=== PATIENT | male | born 1955 | race African-American/Black ===

== ENCOUNTER 2017-02-03 09:49 | Emergency (ER) | payer SELFPAY ==
[~2017-02-03] VITALS: Ht 182.9 cm; Wt 110.0 kg
[~2017-02-03 09:49] MED LIST: PERC5TAB12 PO
[2017-02-03 09:52] VITALS: BP 172/124; PULSE 102; RESP 20; TEMP 98.9; O2SAT 97
[2017-02-03] MEDS ORDERED: methylPREDNISolone SOD SUCC 125 MG/2 ML VIAL IVP ONE (10:15)
[2017-02-03] MEDS ORDERED: SODIUM CHLOR 0.9% 1000 ML INJ 1,000 ML IV ONE (10:15)
[2017-02-03] MEDS ORDERED: SODIUM CHLORIDE 0.9% FLUSH 10 ML FLUSH IVF PRN (10:15)
[2017-02-03 10:20] VITALS: BP 183/141; PULSE 96; RESP 16; O2SAT 98
--- NOTE | 2017-02-03 10:24 | PD ---
HPI Chief Complaint: Respiratory Symptoms Time Seen by Provider: 10:02 Travel History International Travel<30 days: No Contact w/Intl Traveler<30days: No Traveled to known affect area: No History of Present Illness HPI Patient is a 61-year-old male who presents to emergency room with complaints of cough and congestion and wheezing and shortness of breath for the past 2 weeks. Patient reports that for the past 2 weeks, he has had an increased runny nose , reports that he has had a nonproductive, dry cough. Patient reports that he notices worsening cough at nighttime. Patient reports that this cough wakes him up from sleep. Patient reports that he would wake up from sleep with coughing fits and feel short of breath. Reports that symptoms are improved when he lies up from bed. Patient reports that he is a smoker, reports that he smokes less than one pack per day. Patient denies any history of hypertension, hyperlipidemia, CHF, coronary disease. Patient reports that he has not seen a physician in about 5 years. Patient denies any recent travels or trips. Patient denies any fevers or chills. Patient also reports that he would like his left-sided kidneys evaluated as he has noticed that sometimes his urine would be dark. Denies any hematuria. Reports overall, he does not drink enough fluids PFSH Past Medical History Diminished Hearing: No Social History Alcohol Use: Yes (occ/weekends) Tobacco Use: Yes Substance Use: No Allergies-Medications (Allergen,Severity, Reaction): Coded Allergies: No Known Allergies (Unverified , 10/19/15) Reported Meds & Prescriptions Reported Meds & Active Scripts Active Norvasc (Amlodipine Besylate) 5 Mg Tab 5 Mg PO DAILY Prednisone 20 Mg Tab 20 Mg PO BID 5 Days Proair Hfa 8.5 GM Inh (Albuterol Sulfate) 90 Mcg/Act Aer 2 Puff INH Q4-6H PRN 108 mcg/actuation Azithromycin 500 Mg Tab 500 Mg PO DAILY Percocet 5-325 mg (Oxycodone/Acetaminophen) Oxycodone 5/325 Acetaminophen Tab 1 Tab PO Q6H PRN Review of Systems General / Constitutional: No: Fever Eyes: No: Visual changes HENT: No: Headaches Cardiovascular: No: Chest Pain or Discomfort, Palpitations Respiratory: Positive: Cough, Shortness of Breath, Wheezing Gastrointestinal: No: Nausea, Vomiting, Abdominal Pain Genitourinary: No: Dysuria Musculoskeletal: No: Pain Skin: No Rash Neurologic: No: Weakness Psychiatric: No: Depression Endocrine: No: Polydipsia Hematologic/Lymphatic: No: Easy Bruising Physical Exam Narrative GENERAL: No acute distress, nontoxic SKIN: Focused skin assessment warm/dry. HEAD: Atraumatic. Normocephalic. EYES: Pupils equal and round. No scleral icterus. No injection or drainage. ENT: No nasal bleeding or discharge. Mucous membranes pink and moist. NECK: Trachea midline. No JVD. CARDIOVASCULAR: Regular rate and rhythm. No murmur appreciated. RESPIRATORY: No accessory muscle use. Breath sounds equal bilaterally. Patient with scattered rhonchi on lung exam, mild wheezing GASTROINTESTINAL: Abdomen soft, non-tender, nondistended. Hepatic and splenic margins not palpable. Patient with left sided flank pain. MUSCULOSKELETAL: No obvious deformities. No clubbing. No cyanosis. No edema. NEUROLOGICAL: Awake and alert. No obvious cranial nerve deficits. Motor grossly within normal limits. Normal speech. PSYCHIATRIC: Appropriate mood and affect; insight and judgment normal. Data Data Last Documented VS Vital Signs Date Time Temp Pulse Resp B/P Pulse Ox O2 Delivery O2 Flow Rate FiO2 02/03/17 12:51 98 14 150/92 98 02/03/17 10:54 Room Air 02/03/17 09:52 98.9 Orders Complete Blood Count With Diff (02/03/17 10:10) Comprehensive Metabolic Panel (02/03/17 10:10) B-Type Natriuretic Peptide (02/03/17 10:10) D-Dimer (02/03/17 10:10) Act Partial Throm Time (Ptt) (02/03/17 10:10) Prothrombin Time / Inr (Pt) (02/03/17 10:10) Magnesium (Mg) (02/03/17 10:10) Iv Access Insert/Monitor (02/03/17 10:10) Ecg Monitoring (02/03/17 10:10) Oximetry (02/03/17 10:10) Chest, Single Ap (02/03/17 10:10) Sodium Chloride 0.9% Flush (Ns Flush) (02/03/17 10:15) Methylprednisolone So Succ Inj (Solumedr (02/03/17 10:15) Albuterol-Ipratropium Neb (Duoneb Neb) (02/03/17 10:15) Influenzae A/B Antigen (02/03/17 10:10) Sodium Chlor 0.9% 1000 Ml Inj (Ns 1000 M (02/03/17 10:15) Electrocardiogram (02/03/17 ) Ct Pulmonary Angiogram (02/03/17 10:56) Amlodipine (Norvasc) (02/03/17 11:15) Iohexol 350 Inj (Omnipaque 350 Inj) (02/03/17 11:51) Azithromycin (Zithromax) (02/03/17 12:45) Azithromycin (Zithromax) (02/03/17 13:15) Labs Laboratory Tests Test 02/03/17 10:15 White Blood Count 8.0 TH/MM3 Red Blood Count 4.86 MIL/MM3 Hemoglobin 17.6 GM/DL Hematocrit 50.5 % Mean Corpuscular Volume 103.9 FL Mean Corpuscular Hemoglobin 36.2 PG Mean Corpuscular Hemoglobin 34.8 % Concent Red Cell Distribution Width 14.9 % Platelet Count 204 TH/MM3 Mean Platelet Volume 9.3 FL Neutrophils (%) (Auto) 52.7 % Lymphocytes (%) (Auto) 21.4 % Monocytes (%) (Auto) 16.2 % Eosinophils (%) (Auto) 8.4 % Basophils (%) (Auto) 1.3 % Neutrophils # (Auto) 4.2 TH/MM3 Lymphocytes # (Auto) 1.7 TH/MM3 Monocytes # (Auto) 1.3 TH/MM3 Eosinophils # (Auto) 0.7 TH/MM3 Basophils # (Auto) 0.1 TH/MM3 CBC Comment DIFF FINAL Differential Comment Prothrombin Time 12.0 SEC Prothromb Time International 1.1 RATIO Ratio Activated Partial 32.2 SEC Thromboplast Time D-Dimer Quantitative (PE/DVT) 0.89 MG/L FEU Sodium Level 139 MEQ/L Potassium Level 4.6 MEQ/L Chloride Level 104 MEQ/L Carbon Dioxide Level 28.2 MEQ/L Anion Gap 7 MEQ/L Blood Urea Nitrogen 7 MG/DL Creatinine 0.95 MG/DL Estimat Glomerular Filtration 98 ML/MIN Rate Random Glucose 97 MG/DL Calcium Level 9.4 MG/DL Magnesium Level 1.8 MG/DL Total Bilirubin 1.1 MG/DL Aspartate Amino Transf 80 U/L (AST/SGOT) Alanine Aminotransferase 50 U/L (ALT/SGPT) Alkaline Phosphatase 292 U/L B-Type Natriuretic Peptide 50 PG/ML Total Protein 8.1 GM/DL Albumin 3.1 GM/DL MDM Medical Decision Making Medical Screen Exam Complete: Yes Emergency Medical Condition: Yes Interpretation(s) Vital Signs Date Time Temp Pulse Resp B/P Pulse Ox O2 Delivery O2 Flow Rate FiO2 02/03/17 09:52 98.9 102 20 172/124 97 Room Air Differential Diagnosis Acid reflux, COPD exacerbation, CHF exacerbation, PE, pneumonia, influenza, viral syndrome, sinusitis Narrative Course Patient is a 61-year-old male who presents to emergency room with multiple complaints. Patient reports that for the past 2 weeks, he has been feeling short of breath, reports a nonproductive cough with increased wheezing and shortness of breath. She reports that his symptoms are worse at nighttime, patient reports that he is a smoker,, reports that he smokes less than one pack per day. Patient also reports that he does not see a physician and therefore has no medical problems. Overall, patient is nontoxic on evaluation, patient is laughing and smiling on exam. Patient is hypertensive with a blood pressure of 172/124, he is tachycardic with heart rate of 102. Patient does have wheezing on exam, plan to give steroids as well as neb treatments. X-ray of the chest ordered to evaluate for possible pneumonia. Labs as well as EKG ordered. Will continue to monitor patient. Plan does have htn, cardiomegaly - discussed with patient need for him to follow -up with a primary care doctor as he will need a full workup as outpt. Patient reports that he does not have insurance, reviewed case with ED financial services internship - will speak to patient about outpatient community clinics CBC & BMP Diagram 02/03/17 10:15 Laboratory Tests Test 02/03/17 10:15 White Blood Count 8.0 TH/MM3 (4.0-11.0) Red Blood Count 4.86 MIL/MM3 (4.50-5.90) Hemoglobin 17.6 GM/DL (13.0-17.0) Hematocrit 50.5 % (39.0-51.0) Mean Corpuscular Volume 103.9 FL (80.0-100.0) Mean Corpuscular Hemoglobin 36.2 PG (27.0-34.0) Mean Corpuscular Hemoglobin 34.8 % Concent (32.0-36.0) Red Cell Distribution Width 14.9 % (11.6-17.2) Platelet Count 204 TH/MM3 (150-450) Mean Platelet Volume 9.3 FL (7.0-11.0) Neutrophils (%) (Auto) 52.7 % (16.0-70.0) Lymphocytes (%) (Auto) 21.4 % (9.0-44.0) Monocytes (%) (Auto) 16.2 % (0.0-8.0) Eosinophils (%) (Auto) 8.4 % (0.0-4.0) Basophils (%) (Auto) 1.3 % (0.0-2.0) Neutrophils # (Auto) 4.2 TH/MM3 (1.8-7.7) Lymphocytes # (Auto) 1.7 TH/MM3 (1.0-4.8) Monocytes # (Auto) 1.3 TH/MM3 (0-0.9) Eosinophils # (Auto) 0.7 TH/MM3 (0-0.4) Basophils # (Auto) 0.1 TH/MM3 (0-0.2) CBC Comment DIFF FINAL Differential Comment Prothrombin Time 12.0 SEC (9.8-11.6) Prothromb Time International 1.1 RATIO Ratio Activated Partial 32.2 SEC Thromboplast Time (24.3-30.1) D-Dimer Quantitative (PE/DVT) 0.89 MG/L FEU (0.00-0.50) Sodium Level 139 MEQ/L (136-145) Potassium Level 4.6 MEQ/L (3.5-5.1) Chloride Level 104 MEQ/L (98-107) Carbon Dioxide Level 28.2 MEQ/L (21.0-32.0) Anion Gap 7 MEQ/L (5-15) Blood Urea Nitrogen 7 MG/DL (7-18) Creatinine 0.95 MG/DL (0.60-1.30) Estimat Glomerular Filtration 98 ML/MIN (>89) Rate Random Glucose 97 MG/DL (74-106) Calcium Level 9.4 MG/DL (8.5-10.1) Magnesium Level 1.8 MG/DL (1.5-2.5) Total Bilirubin 1.1 MG/DL (0.2-1.0) Aspartate Amino Transf 80 U/L (15-37) (AST/SGOT) Alanine Aminotransferase 50 U/L (12-78) (ALT/SGPT) Alkaline Phosphatase 292 U/L (45-117) B-Type Natriuretic Peptide 50 PG/ML (0-100) Total Protein 8.1 GM/DL (6.4-8.2) Albumin 3.1 GM/DL (3.4-5.0) Last Impressions Chest X-Ray 02/03/17 1010 Signed Impressions: Service Date/Time: Friday, February 03, 2017 10:30 - CONCLUSION: Cardiomegaly without radiographic evidence of congestive failure. Miguel Goldberg MD Microbiology Date/Time Procedure Status Source Growth 02/03/17 10:55 Influenza Types A,B Antigen ([facility]) - Final Complete Nasal Aspirate Positive For Flu A Antigen All labs and all studies reviewed patient in detail including all findings. Patient was given a copy of his CT study as he will need to follow up on all incidental findings. Discussed importance of follow-up with a primary care doctor. Patient does have htn while in the ER, I do think that this has been a longstanding issue for him which has not been diagnosed as he has not been seen by a physician. Will start patient on Norvasc 5mg. discussed need to return to the emergency room in 2- 3 days for blood pressure recheck if he is unable to see a primary care doctor. Patient does have influenza type A, will start Tamiflu as patient has been symptomatic for the past 2 weeks. Given his cough and congestion and shortness of breath or wheezing, will treat patient for acute bronchitis. Diagnosis Primary Impression: Acute bronchitis Qualified Code: J20.9 - Acute bronchitis, unspecified organism Additional Impressions: Influenza A Cardiomegaly Hypertension Qualified Code: I10 - Essential hypertension Patient Instructions: General Instructions Additional Instructions: Please follow-up with your primary care doctor as soon as possible If you cannot follow up with a primary care doctor and 2-3 days, return to the emergency room for a blood pressure recheck, you have been started on blood pressure medications today Please drink plenty of fluids as you do have influenza Return to the emergency room if symptoms worsen or progress Med/Other Pt SpecificInfo: Prescription(s) given Scripts Amlodipine (Norvasc)5 Mg Tab5 Mg PO DAILY #30 TAB Ref 0 Prov:Lawanda Cabezas DO 02/03/17 Prednisone 20 Mg Tab20 Mg PO BID 5 Days Ref 0 Prov:Lawanda Cabezas DO 02/03/17 Albuterol 8.5 GM Inh (Proair Hfa 8.5 GM Inh)90 Mcg/Act Aer2 Puff INH Q4-6H PRN ( SHORTNESS OF BREATH) #1 INHALER Ref 0 108 mcg/actuation Prov:Lawanda Cabezas DO 02/03/17 Azithromycin 500 Mg Lgm221 Mg PO DAILY #5 TAB Ref 0 Prov:Lawanda Cabezas DO 02/03/17 Disposition: 01 DISCHARGE HOME Condition: Fair Lawanda Cabezas DO Feb 03, 2017 10:24
[2017-02-03] MEDS: RESP: ALBUTEROL 2.5 MG/IPRATROPIUM 0.5 MG NEB (SCH) INH (10:29)
[2017-02-03 10:32] LABS: AUTOMATED NEUTROPHIL # 4.2 TH/MM3 (1.8-7.7); BASOPHIL # 0.1 TH/MM3 (0-0.2); BASOPHIL % 1.3 % (0.0-2.0); EOSINOPHIL # 0.7 TH/MM3 (0-0.4); EOSINOPHIL % 8.4 % (0.0-4.0); HEMATOCRIT 50.5 % (39.0-51.0); HEMO FLAGS DIFF FINAL; LYMPH % 21.4 % (9.0-44.0); LYMPHOCYTE # 1.7 TH/MM3 (1.0-4.8); MEAN CELL VOLUME 103.9 FL (80.0-100.0); MEAN CORPUSCULAR HEMOGLOBIN 36.2 PG (27.0-34.0); MEAN CORPUSCULAR HGB CONC 34.8 % (32.0-36.0); MONO % 16.2 % (0.0-8.0); NEUT % 52.7 % (16.0-70.0); PLATELET COUNT 204 TH/MM3 (150-450); RED BLOOD COUNT 4.86 MIL/MM3 (4.50-5.90); RED CELL DISTRIBUTION WIDTH 14.9 % (11.6-17.2)
[2017-02-03 10:42] LABS: APTT (PATIENT) 32.2 SEC (24.3-30.1); INTERNATIONAL NORMALIZED RATIO 1.1 RATIO
--- NOTE | 2017-02-03 10:45 | RADRPT ---
EXAM DATE/TIME: 02/03/2017 10:30 [facility] COMPARISON: No previous studies available for comparison. INDICATIONS : Short of breath. MEDICAL HISTORY : None. SURGICAL HISTORY : None. ENCOUNTER: Initial ACUITY: 1 day PAIN SCORE: 0/10 LOCATION: Bilateral chest FINDINGS: The lungs are symmetrically aerated and clear. The heart is enlarged. Central bronchopulmonary neeta ings at both hemidiaphragms are well delineated. CONCLUSION: Cardiomegaly without radiographic evidence of congestive failure. Miguel Goldberg MD on February 03, 2017 at 10:43 Board Certified Radiologist. This report was verified electronically.
[2017-02-03 10:57] LABS: ANION GAP 7 MEQ/L (5-15)
[2017-02-03 11:00] LABS: ALKALINE PHOSPHATASE 292 U/L (45-117); ALT (GPT) 50 U/L (12-78); AST (GOT) 80 U/L (15-37); BICARBONATE 28.2 MEQ/L (21.0-32.0); BLOOD UREA NITROGEN 7 MG/DL (7-18); CHLORIDE 104 MEQ/L (98-107); GLOMERULAR FILTRATION RATE 98 ML/MIN (>89); MAGNESIUM 1.8 MG/DL (1.5-2.5); POTASSIUM 4.6 MEQ/L (3.5-5.1); SODIUM (NA) 139 MEQ/L (136-145); TOTAL BILIRUBIN ADULT 1.1 MG/DL (0.2-1.0)
[2017-02-03] MEDS ORDERED: amLODIPine BESYLATE 5 MG TAB PO ONE (11:15)
[2017-02-03] MEDS ORDERED: IOHEXOL 350 MG/ML 10 ML VIAL (for RAD DIAG) IV ONE (11:51)
--- NOTE | 2017-02-03 12:12 | RADRPT ---
EXAM DATE/TIME: 02/03/2017 11:43 [facility] COMPARISON: No previous studies available for comparison. INDICATIONS : Dyspnea, cough for 2 weeks IV CONTRAST: 68 cc Omnipaque 350 (iohexol) IV RADIATION DOSE: 23.43 CTDIvol (mGy) MEDICAL HISTORY : Hypertension. SURGICAL HISTORY : None. ENCOUNTER: Initial ACUITY: 2 weeks PAIN SCALE: 0/10 LOCATION: Chest TECHNIQUE: Volumetric scanning of the chest was performed using a pulmonary embolism protocol MIP images were re constructed. Using automated exposure control and adjustment of the mA and/or kV according to patien t size, radiation dose was kept as low as reasonably achievable to obtain optimal diagnostic quality images. FINDINGS: There is mild interstitial edema present. There is no axillary adenopathy. There is no radiographically significant mediastinal adenopathy. There is limited visualization of the main pulmonary vessels. I don't see a large central pulmonary embolus. There are no suspicious lung lesions identified. The heart is enlarged without pericardial effusion. CONCLUSION: 1. Mild congestive failure with cardiomegaly. 2. Negative for central pulmonary emboli. Donell Gibson MD FACR on February 03, 2017 at 12:06 Board Certified Radiologist. This report was verified electronically.
[2017-02-03] MEDS ORDERED: AZITHROMYCIN 250 MG TAB PO ONE ×2 (12:45→13:15)
[2017-02-03 12:51] VITALS: BP 150/92
[2017-02-03] MEDS ORDERED: ALBUAER3 INH (12:59)
[2017-02-03] MEDS ORDERED: AZIT500T2 PO (12:59)
[2017-02-03] MEDS ORDERED: PRED20 PO (13:00)
[2017-02-03] MEDS ORDERED: AMLO5 PO (13:00)
--- NOTE | 2017-02-03 20:20 | EKG ---
Date Performed: 02/03/2017 Time Performed: 10:46:11 PTAGE: 61 years EKG: ATRIAL FIBRILLATION BORDERLINE LEFT AXIS DEVIATION ABNORMAL RHYTHM ECG NO PREVIOUS TRACING DOCTOR: Estuardo Pacheco Interpretating Date/Time 02/03/2017 20:18:52
== END 2017-02-03 13:08 | disposition home or self-care (01) ==
LOC: NEPC 09:49
DX: J20.9 Acute bronchitis, unspecified (principal); J10.1 Influenza due to other identified influenza virus with other respiratory manifestations; I51.7 Cardiomegaly; I10 Essential (primary) hypertension; R06.02 Shortness of breath; F17.200 Nicotine dependence, unspecified, uncomplicated; R94.31 Abnormal electrocardiogram [ECG] [EKG]
CPT/HCPCS: 71010; 71275; 80053; 83735; 83880; 85025; 85379; 85610; 85730; 87804; 93005; 94640; 94664; 96361; 96374; 99285; J2930; J7030; Q9967

== ENCOUNTER 2018-06-22 23:19 | Inpatient (IN) ==
[2018-06-22] MEDS ORDERED: dilTIAZem 30 MG Tablet PO ONE (23:54)
[2018-06-23 00:02] LABS: Baso % (Auto) 0.2 % (0.0-2.0); Eos # (Auto) 0.5 th/mm3 (0.0-0.4); Eos % (Auto) 6.1 % (0.0-4.0); Hematocrit 47.5 % (39.0-51.0); Hemoglobin 16.2 gm/dL (13.0-17.0); Lymph # (Auto) 2.8 th/mm3 (1.0-4.8); Lymph % (Auto) 34.7 % (9.0-44.0); Mean Corpuscular HGB Conc 34.2 % (32.0-36.0); Mean Corpuscular Hemoglobin 36.9 pg (27.0-34.0); Mean Platelet Volume 9.3 fL (7.0-11.0); Mono # (Auto) 1.2 th/mm3 (0.0-0.9); Mono % (Auto) 14.8 % (0.0-8.0); Neut # (Auto) 3.6 th/mm3 (1.8-7.7); Neut % (Auto) 44.2 % (16.0-70.0); Platelet Count 248 th/mm3 (150-450); Red Cell Distribution Width 15.1 % (11.6-17.2)
[2018-06-23 00:21] LABS: Alanine Aminotransferase 52 U/L (12-78)
--- NOTE | 2018-06-23 00:21 | ED ---
HPI General Chief Complaint: Chest Pain Stated Complaint: Chest Pain Time Seen by Provider: 06/22/18 23:46 Source: patient and EMS Mode of arrival: EMS Limitations: no limitations History of Present Illness HPI narrative: Is a 62-year-old man who presents to the emergency department via for reported chest pain. Patient reports he has an enlarged heart but has not been able to afford any medication for a number of months. He does report a history of irregular heartbeat. Does not think he was on diuretics in the past. He does also state he was told to get inhalers for breathing but has not been able to afford them either. He smokes about a third of a pack a day. He was drinking tonight. He thinks his enlarged heart was due to his blood pressure. Never been told he has COPD or asthma per his report. States that he gets short of breath in the heat. Tonight he started getting chest pain to the shortness of breath which is what brought him to the emergency department. Denies any recent illness or injury. No other complaints. States he has not tried to follow-up with her primary physician, last time he saw doctors when he was here with us. Complete Quality Measures for STEMI Alert Patients Related Data Home Medications Medication Instructions Recorded Confirmed No Known Home Medications 06/22/18 06/22/18 Allergies Allergy/AdvReac Type Severity Reaction Status Date / Time No Known Allergies Allergy Unverified 06/22/18 23:21 Review of Systems ROS: all other systems reviewed are negative [facility] Medical History Medical History Afib (Chronic) Cardiomegaly (Chronic) ETOH abuse (Chronic) Hypertension (Chronic) Social History Social History Substance History: No History of Abuse Second Hand Smoke Exposure: No Smoking Status: Current every day smoker Tobacco Type: Cigarettes How Often Do You Have a Drink Containing Alcohol: 4 or more times a week Recent Travel in [facility] within the Last 8 Weeks: No Recent Out of Country Travel within the Last 8 Weeks: No Immunization History Tetanus Immunization: <5 Years Hx Influenza Vaccine This Season: No Exam Narrative Exam Narrative: GENERAL: Pleasantly boisterous 62-year-old man, no acute distress. SKIN: Focused skin assessment warm/dry. HEAD: Atraumatic. Normocephalic. EYES: Pupils equal and round. No scleral icterus. No injection or drainage. ENT: No nasal bleeding or discharge. Mucous membranes pink and moist. NECK: Trachea midline. No JVD. CARDIOVASCULAR: Heart rate still bit irregular. Rapid. No murmurs. RESPIRATORY: Mild diffuse wheezing. Good air movement. No respiratory distress. GASTROINTESTINAL: Abdomen soft, non-tender, nondistended. Hepatic and splenic margins not palpable. MUSCULOSKELETAL: No obvious deformities. No significant edema. NEUROLOGICAL: Awake and alert. No obvious cranial nerve deficits. Motor grossly within normal limits. Normal speech. PSYCHIATRIC: Gregarious but emotionally labile. Insight and judgment fair. Course Initial Documented Vital Signs Temperature 97.7 F 06/22/18 23:21 Pulse Rate 98 H 06/22/18 23:21 Respiratory Rate 18 06/22/18 23:21 Blood Pressure 142/100 H 06/22/18 23:21 Pulse Oximetry 98 06/22/18 23:21 Last Documented Vital Signs Temperature 97.7 F 06/22/18 23:21 Pulse Rate 119 H 06/23/18 00:38 Respiratory Rate 18 06/23/18 00:38 Blood Pressure 146/76 H 06/23/18 01:33 Pulse Oximetry 96 06/23/18 00:38 Medical Decision Making MDM Narrative Medical decision making narrative: 62-year-old man, history of what sounds like cardiomegaly, possibly cardiomyopathy, A. fib, possibly COPD, here with the same. Some chest pain as well. He looks well. He has some wheezing. We will give him some treatments. We will give him some oral diltiazem. Will check some enzymes and EKG, reassess. FINAL: Patient's troponin elevated. Wheezing improved following bronchodilators. Patient will need serial cardiac enzymes, possibly heart cath pending further evaluation. Elevated troponin could be related to cardiomyopathy, arrhythmia and strain, or ACS. Medical Screen Exam Complete: Yes Emergency Medical Condition: Yes Lab Data Lab results reviewed: Yes I reviewed the patient's lab results. Result diagrams: 06/22/18 23:40 06/22/18 23:40 Lab Results 06/22/18 06/22/18 06/22/18 Range/Units 23:40 23:40 23:40 WBC 8.0 (4.0-11.0) th/mm3 RBC 4.40 L (4.50-5.90) mil/mm3 Hgb 16.2 (13.0-17.0) gm/dL Hct 47.5 (39.0-51.0) % MCV 108.0 H (80.0-100.0) fL MCH 36.9 H (27.0-34.0) pg MCHC 34.2 (32.0-36.0) % RDW 15.1 (11.6-17.2) % Plt Count 248 (150-450) th/mm3 MPV 9.3 (7.0-11.0) fL Neut % (Auto) 44.2 (16.0-70.0) % Lymph % (Auto) 34.7 (9.0-44.0) % [place] % (Auto) 14.8 H (0.0-8.0) % Eos % (Auto) 6.1 H (0.0-4.0) % Baso % (Auto) 0.2 (0.0-2.0) % Neut # (Auto) 3.6 (1.8-7.7) th/mm3 Lymph # (Auto) 2.8 (1.0-4.8) th/mm3 [place] # (Auto) 1.2 H (0.0-0.9) th/mm3 Eos # (Auto) 0.5 H (0.0-0.4) th/mm3 Baso # (Auto) 0.0 (0.0-0.2) th/mm3 WBC Differential . Differential Comment Auto diff final Sodium 143 (136-145) meq/L Potassium 3.9 (3.5-5.1) meq/L Chloride 108 H (98-107) meq/L Carbon Dioxide 24.5 (21.0-32.0) meq/L Anion Gap 11 (5-15) meq/L BUN 8 (7-18) mg/dL Creatinine 1.09 (0.60-1.30) mg/dL Estimated GFR 84 L (>89) mL/min Random Glucose 125 H (74-106) mg/dL Calcium 8.7 (8.5-10.1) mg/dL Total Bilirubin 0.9 (0.2-1.0) mg/dL AST 86 H (15-37) U/L ALT 52 (12-78) U/L Alkaline Phosphatase 370 H (45-117) U/L Troponin I 0.16 H (0.02-0.05) ng/mL B-Natriuretic Peptide 24 (0-100) pg/mL Total Protein 7.3 (6.4-8.2) g/dL Albumin 3.1 L (3.4-5.0) g/dL Lipase 118 (73-393) U/L Serum Alcohol 290 H (0-5) mg/dL Imaging Data Radiologist's impression: Chest X-Ray 06/23/18 00:09 CONCLUSION: No acute cardiopulmonary abnormality is identified. Negative. ECG Data Attestation: I personally reviewed and interpreted this ECG as follows: Interpretation: A. fib, rate of 113, small inferior Q waves, no definite evidence of acute ischemia. Compared to previous EKG from January 2017, no significant change. Discharge Plan Discharge Disposition Patient Disposition: 30 Still Patient Physicians Team ED Provider: Trenton Bernard Primary Care Provider: UNKNOWN, Rxs /Orders / Referrals /Forms Prescriptions: No Action No Known Home Medications RF: 0 Discharge Instructions Patient Printed Instructions: Chest Pain (ED) Discharge Interventions Interventions: Vital Signs Last Done: 06/22/18 23:28 Status ED Status: Ready for Discharge
[2018-06-23 00:25] LABS: Alkaline Phosphatase 370 U/L (45-117); Total Protein 7.3 g/dL (6.4-8.2); Troponin I 0.16 ng/mL (0.02-0.05)
[2018-06-23 00:47] LABS: Albumin 3.1 g/dL (3.4-5.0); Anion Gap 11 meq/L (5-15); Aspartate Aminotransferase 86 U/L (15-37); Blood Urea Nitrogen 8 mg/dL (7-18); Calcium 8.7 mg/dL (8.5-10.1); Carbon Dioxide 24.5 meq/L (21.0-32.0); Chloride 108 meq/L (98-107); Glomerular Filtration Rate 84 mL/min (>89); Glucose,Random 125 mg/dL (74-106); Lipase 118 U/L (73-393); Sodium 143 meq/L (136-145)
[2018-06-23 00:48] LABS: Alcohol 290 mg/dL (0-5); Potassium 3.9 meq/L (3.5-5.1)
--- NOTE | 2018-06-23 00:53 | XR ---
EXAM DATE: 06/23/2018 12:29 AM EDT AGE/SEX: 62 years / Male INDICATIONS: Chest pain and shortness of breath. CLINICAL DATA: This is the patient's initial encounter. Patient reports that signs and symptoms have been present for 3 days and indicates a pain score of 5/10. MEDICAL/SURGICAL HISTORY: None. None. COMPARISON: [facility] [place], CHEST SINGLE AP, 02/03/2017. . FINDINGS: Portable AP view of the chest demonstrates a normal-sized cardiac silhouette. No effusion, consolidat ion, or pneumothorax is identified. The bones and soft tissues demonstrate no acute finding. CONCLUSION: No acute cardiopulmonary abnormality is identified. Electronically signed by: Clay Newsome MD 06/23/2018 12:51 AM EDT
[2018-06-23] MEDS ORDERED: Acetaminophen 500 MG Tablet PO PRN (01:31)
[2018-06-23] MEDS ORDERED: LORazepam 1 MG Tablet PO PRN (01:34)
[2018-06-23] MEDS ORDERED: Haloperidol Inj 5 MG/ML Ampul IV.PUSH PRN (01:34)
--- NOTE | 2018-06-23 01:44 | P.HP ---
History of Present Illness Service: [facility] Primary Care Physician: UNKNOWN History of Present Illness: 62-year-old male with past medical history significant for alcohol abuse presents to the emergency department for evaluation of chest pain. The patient reports that he has been having substernal chest pain/pressure for the past 4 hours. He reports drinking approximately 4 alcoholic beverages this evening. He endorses associated shortness of breath. No diaphoresis. No fever/chills. No abdominal pain. No nausea/vomiting/diarrhea. No lateralizing signs/ symptoms. Review of Systems All other systems reviewed negative except as stated in HPI PMFSH - History History Provided By: Patient - Medical History Medical History: Medical History (Last Reviewed 06/23/18 @ 00:17 by Trenton Bernard MD) Cardiomegaly ETOH abuse Hypertension Afib - Surgical History Surgical History: Surgical History (Last Updated 06/23/18 @ 01:37 by Lawanda Mack MD) No history of previous surgery - Family History Family History: Family History (Last Updated 06/23/18 @ 01:38 by Lawanda Mack MD) Other Family history normal - Tobacco History Second Hand Smoke Exposure: No Tobacco Use In Past 30 Days: Yes Smoking Status: Current every day smoker Tobacco Type: Cigarettes - Alcohol History How Often Do You Have a Drink Containing Alcohol: 4 or more times a week - Substance Use History Substance History: No History of Abuse - Travel History Recent Travel in the [place] Within the Last 8 Weeks: No Recent Travel Out of the Country Within the Last 8 Weeks: No - Immunization History Tetanus Immunization: <5 Years Hx Influenza Vaccine This Season: No Medications and Allergies Active Medications: Active Medications Acetaminophen (Tylenol) 500 mg PO Q4H PRN PRN Reason: HEADACHE Albuterol (Duoneb Neb (Prn)) 1 ampul NEB Q4HR NEB PRN PRN Reason: SOB/Wheezing Aspirin (Aspirin) 325 mg PO DAILY LINDSAY Sodium Chloride (Ns Flush) 2 ml IV.FLUSH UNSCH PRN PRN Reason: FLUSH AFTER USING IV ACCESS Allergies Allergy/AdvReac Type Severity Reaction Status Date / Time No Known Allergies Allergy Unverified 06/22/18 23:21 Home Medications Medication Instructions Recorded Confirmed Type No Known Home Medications 06/22/18 06/22/18 History Exam Vital signs: Vital Signs 06/22/18 23:21 06/22/18 23:28 06/22/18 23:40 Temperature 97.7 F Pulse Rate 98 H 125 H Respiratory Rate 18 Blood Pressure 142/100 H Pulse Oximetry 98 96 06/23/18 00:01 06/23/18 00:38 06/23/18 01:33 Temperature Pulse Rate 117 H 119 H Respiratory Rate 20 18 Blood Pressure 123/73 146/76 H Pulse Oximetry 98 96 Intake & Output 06/22/18 06/22/18 06/23/18 06:59 18:59 06:59 Weight 111.13 kg Narrative: Gen.: No acute distress Head: Normocephalic. Atraumatic. EENT: Pupils equal round and reactive to light. Nose without drainage. Airway intact. Throat without injection. Cardiovascular: Regular rate and rhythm. No murmurs, rubs or gallops. Respiratory: Bilateral wheezes throughout. Abdomen: Soft, nontender, nondistended. No peritoneal signs. Musculoskeletal: No gross deformities. No edema. Skin: No obvious rashes or erythema. Neuro: Sensory and motor grossly intact. Cranial nerves II through XII grossly intact. Results - Labs CBC & Chem 7: 06/22/18 23:40 06/22/18 23:40 Labs: Laboratory Results - last 24 hr 06/22/18 06/22/18 06/22/18 23:40 23:40 23:40 WBC 8.0 RBC 4.40 L Hgb 16.2 Hct 47.5 MCV 108.0 H MCH 36.9 H MCHC 34.2 RDW 15.1 Plt Count 248 MPV 9.3 Neut % (Auto) 44.2 Lymph % (Auto) 34.7 [place] % (Auto) 14.8 H Eos % (Auto) 6.1 H Baso % (Auto) 0.2 Neut # (Auto) 3.6 Lymph # (Auto) 2.8 [place] # (Auto) 1.2 H Eos # (Auto) 0.5 H Baso # (Auto) 0.0 WBC Differential . Differential Comment Auto diff final Sodium 143 Potassium 3.9 Chloride 108 H Carbon Dioxide 24.5 Anion Gap 11 BUN 8 Creatinine 1.09 Estimated GFR 84 L Random Glucose 125 H Calcium 8.7 Total Bilirubin 0.9 AST 86 H ALT 52 Alkaline Phosphatase 370 H Troponin I 0.16 H B-Natriuretic Peptide 24 Total Protein 7.3 Albumin 3.1 L Lipase 118 Serum Alcohol 290 H - Imaging Impressions Chest X-Ray 06/23/18 00:09 CONCLUSION: No acute cardiopulmonary abnormality is identified. Caprini VTE Risk Assessment Caprini VTE Risk Assessment: Moderate/High Risk (score >= 2) Caprini Risk Assessment Model: Point Value = 1 Point Value = 2 Point Value = 3 Point Value = 5 Age 41-60 Minor surgery BMI > 25 kg/m2 Swollen legs Varicose veins or History of unexplained or recurrent spontaneous Oral contraceptives or hormone replacement Sepsis (< 1 month) Serious lung disease, including pneumonia (< 1 month) Abnormal pulmonary function Acute myocardial infarction Congestive heart failure (< 1 month) History of inflammatory bowel disease Medical patient at bed rest Age 61-74 Arthroscopic surgery Major open surgery (> 45 min) Laparoscopic surgery (> 45 min) Malignancy Confined to bed (> 72 hours) Immobilizing plaster cast Central venous access Age >= 75 History of VTE Family history of VTE Factor V Leiden Prothrombin [id number] Lupus anticoagulant Anticardiolipin antibodies Elevated serum homocysteine Heparin-induced thrombocytopenia Other congenital or acquired thrombophilia Stroke (< 1 month) Elective arthroplasty Hip, pelvis, or leg fracture Acute spinal cord injury (< 1 month) Prophylaxis Regimen: Total Risk Factor Score Risk Level Prophylaxis Regimen 0-1 Low Early ambulation 2 Moderate Order ONE of the following: *Sequential Compression Device (SCD) *Heparin 5000 units SQ BID 3-4 Higher Order ONE of the following medications: *Heparin 5000 units SQ TID *Enoxaparin/Lovenox 40 mg SQ daily (WT < 150 kg, CrCl > 30 mL/min) *Enoxaparin/Lovenox 30 mg SQ daily (WT < 150 kg, CrCl > 10-29 mL/min) *Enoxaparin/Lovenox 30 mg SQ BID (WT < 150 kg, CrCl > 30 mL/min) AND/OR *Sequential Compression Device (SCD) 5 or more Highest Order ONE of the following medications: *Heparin 5000 units SQ TID (Preferred with Epidurals) *Enoxaparin/Lovenox 40 mg SQ daily (WT < 150 kg, CrCl > 30 mL/min) *Enoxaparin/Lovenox 30 mg SQ daily (WT < 150 kg, CrCl > 10-29 mL/min) *Enoxaparin/Lovenox 30 mg SQ BID (WT < 150 kg, CrCl > 30 mL/min) AND *Sequential Compression Device (SCD) Assessment and Plan - Plan Assessment/plan: 1. Chest pain/elevated troponin EKG negative for ischemia, personally reviewed Initial troponin 0.16 ACS rule out pending; serial troponins/EKGs 2. ? History of A. fib Patient denies history of atrial fibrillation There is no previous documentation of atrial fibrillation in the medical record was reviewed at length 3. ? CHF Patient reports he had a "swollen heart" during a previous ER visit Previous ER documentation shows cardiomegaly Patient reports he was previously prescribed heart pills which he has been unable to continue taking as he does not have insurance Echo pending 4. Alcohol abuse Thiamine/folate/multivitamins [facility] protocol Monitor for signs of withdrawal FEN N.p.o. Electrolytes: Monitor and replete as needed Heparin
[2018-06-23] MEDS: Heparin - SQ 10,000 UNITS/ML Vial SQ SCH ×3 (01:51→19:17)
[2018-06-23 06:50] LABS: Troponin I 0.16 ng/mL (0.02-0.05)
--- NOTE | 2018-06-23 09:16 | P.PN ---
Subjective Interval history: F/U CP. Presented with atypical chest pain currently resolved however complains of wheezing and shortness of breath. Telemetry shows A. fib with controlled ventricular response CHADS of 1(HTN) or 2 if echo confirms HF Physical Exam Vital signs: Vital Signs 06/22/18 23:21 06/22/18 23:28 06/22/18 23:40 Temperature 97.7 F Pulse Rate 98 H 125 H Respiratory Rate 18 Blood Pressure 142/100 H Pulse Oximetry 98 96 06/23/18 00:01 06/23/18 00:38 06/23/18 01:33 Temperature Pulse Rate 117 H 119 H Respiratory Rate 20 18 Blood Pressure 123/73 146/76 H Pulse Oximetry 98 96 06/23/18 04:00 06/23/18 08:00 Temperature 97 F L 98.1 F Pulse Rate 83 83 Respiratory Rate 20 17 Blood Pressure 151/93 H 122/87 Pulse Oximetry 97 94 L Intake & Output 06/22/18 06/23/18 06/23/18 18:59 06:59 18:59 Intake Total 0 / 0 Output Total 200 / 200 Balance -200 / -200 Weight 105.5 kg Intake: Oral 0 / 0 Output: Urine 200 / 200 Other: Weight On Admission 105.5 kg Narrative: GENERAL: Well-developed, well-nourished in no distress SKIN: Warm and dry. CARDIOVASCULAR: Irregularly irregular RESPIRATORY: No accessory muscle use. Expiratory wheezes noted. Breath sounds equal bilaterally. GASTROINTESTINAL: Abdomen soft, non-tender, nondistended. MUSCULOSKELETAL: Extremities without clubbing, cyanosis, or edema. No obvious deformities. NEUROLOGICAL: Awake and alert. No obvious cranial nerve deficits. Motor grossly within normal limits. Five out of 5 muscle strength in the arms and legs. Normal speech. PSYCHIATRIC: Appropriate mood and affect; insight and judgment normal. Results - Labs CBC & Chem 7: 06/22/18 23:40 06/22/18 23:40 Laboratory Results - last 24 hr 06/22/18 06/22/18 06/22/18 23:40 23:40 23:40 WBC 8.0 RBC 4.40 L Hgb 16.2 Hct 47.5 MCV 108.0 H MCH 36.9 H MCHC 34.2 RDW 15.1 Plt Count 248 MPV 9.3 Neut % (Auto) 44.2 Lymph % (Auto) 34.7 [place] % (Auto) 14.8 H Eos % (Auto) 6.1 H Baso % (Auto) 0.2 Neut # (Auto) 3.6 Lymph # (Auto) 2.8 [place] # (Auto) 1.2 H Eos # (Auto) 0.5 H Baso # (Auto) 0.0 WBC Differential . Differential Comment Auto diff final Sodium 143 Potassium 3.9 Chloride 108 H Carbon Dioxide 24.5 Anion Gap 11 BUN 8 Creatinine 1.09 Estimated GFR 84 L Random Glucose 125 H Calcium 8.7 Total Bilirubin 0.9 AST 86 H ALT 52 Alkaline Phosphatase 370 H Total Creatine Kinase Troponin I 0.16 H B-Natriuretic Peptide 24 Total Protein 7.3 Albumin 3.1 L Lipase 118 Serum Alcohol 290 H 06/23/18 05:53 WBC RBC Hgb Hct MCV MCH MCHC RDW Plt Count MPV Neut % (Auto) Lymph % (Auto) [place] % (Auto) Eos % (Auto) Baso % (Auto) Neut # (Auto) Lymph # (Auto) [place] # (Auto) Eos # (Auto) Baso # (Auto) WBC Differential Differential Comment Sodium Potassium Chloride Carbon Dioxide Anion Gap BUN Creatinine Estimated GFR Random Glucose Calcium Total Bilirubin AST ALT Alkaline Phosphatase Total Creatine Kinase 139 Troponin I 0.16 H B-Natriuretic Peptide Total Protein Albumin Lipase Serum Alcohol - Imaging Impressions Chest X-Ray 06/23/18 00:09 CONCLUSION: No acute cardiopulmonary abnormality is identified. - Procedures none Assessment and Plan - Plan 1. Chest pain/elevated troponin EKG negative for ischemia, personally reviewed Currently pain-free; serial troponins/EKGs. Continue aspirin and obtain Lexiscan in the morning. Check UDS 2. ? History of A. fib Patient denies history of atrial fibrillation There is no previous documentation of atrial fibrillation in the medical record was reviewed at length Telemetry shows A. fib with controlled ventricular response. Chads score of 1 continue aspirin. Consider calcium channel natanael or beta-natanael pending echocardiogram and stress test 3. ? CHF Patient reports he had a "swollen heart" during a previous ER visit Previous ER documentation shows cardiomegaly Patient reports he was previously prescribed heart pills which he has been unable to continue taking as he does not have insurance BNP within normal limits echo pending 4. Alcohol abuse Thiamine/folate/multivitamins [facility] protocol Monitor for signs of withdrawal 5. COPD exacerbation which I believe the primary reason for his symptomatology. Tobacco cessation. Chest x-ray without acute findings. Start scheduled nebulization, prednisone and doxycycline DVT prophylaxis with heparin Discharge Planning: Discharge in the morning if stress test negative with improved respiratory status. Follow-up echocardiogram
[2018-06-23] MEDS: Aspirin 325 MG Tablet PO SCH (09:19)
[2018-06-23] MEDS: Multivitamin/Minerals Therapeutic Tablet PO SCH (09:19)
[2018-06-23] MEDS: Folic Acid 1 MG Tablet PO SCH (09:19)
--- NOTE | 2018-06-23 11:45 | ECHRPT ---
Indication: Heart failure, unspecified CONCLUSIONS Normal left ventricular size. Mild concentric left ventricular hypertrophy. The left ventricular systolic function is normal with an estimated ejection fraction in the range of 60-65%. No regional wall motion abnormalities are present. Mild calcification of the noncoronary cusp of the aortic valve. BP: / HR: Rhythm: Technical Quality: FINDINGS LEFT VENTRICLE Normal left ventricular size. Mild concentric left ventricular hypertrophy. The left ventricular systolic function is normal with an estimated ejection fraction in the range of 60-65%. No regional wall motion abnormalities are present. RIGHT VENTRICLE Normal right ventricular size and systolic function. LEFT ATRIUM The left atrial size is normal. RIGHT ATRIUM The right atrial size is normal. ATRIAL SEPTUM Normal atrial septal thickness without atrial level shunting by limited color doppler interrogation. AORTA The aortic root and proximal ascending aorta are normal in size on limited imaging. MITRAL VALVE Structurally normal mitral valve. No mitral valve stenosis or regurgitation. AORTIC VALVE Mild calcification of the noncoronary cusp of the aortic valve. TRICUSPID VALVE Structurally normal tricuspid valve. No tricuspid valve stenosis or regurgitation. PULMONARY VALVE The pulmonary valve is not well visualized. VESSELS The inferior vena cava is normal in size. PERICARDIUM No pericardial effusion. Howard Moon MD (Electronically Signed) Final Date:23 June 2018 11:44
[2018-06-23] MEDS: predniSONE 20 MG Tablet PO SCH (12:12)
[2018-06-23 12:31] LABS: Troponin I 0.17 ng/mL (0.02-0.05)
--- NOTE | 2018-06-23 23:50 | ECG ---
Date Performed: 06/23/2018 Time Performed: 07:55:56 PTAGE: 62 years EKG: Atrial fibrillation. Inferior infarct - age undetermined Abnormal ECG PREVIOUS TRACING : 06/22/2018 23.23 Compared to previous tracing, rate now better controlled DOCTOR: Estuardo Pacheco Interpretating Date/Time 06/23/2018 23:49:12
--- NOTE | 2018-06-24 00:09 | ECG ---
Date Performed: 06/22/2018 Time Performed: 23:23:43 PTAGE: 62 years EKG: ATRIAL FIBRILLATION WITH RAPID VENTRICULAR RESPONSE INFERIOR MYOCARDIAL INFARCTION ABNORMAL ECG INTERPRETATION BASED ON A DEFAULT AGE OF 40 YEARS PREVIOUS TRACING : 02/03/2017 10.46 Since the previous tracing, no significant change not ed DOCTOR: Estuardo Pacheco Interpretating Date/Time 06/24/2018 00:07:12
[2018-06-24] MEDS: Heparin - SQ 10,000 UNITS/ML Vial SQ SCH ×3 (01:45→17:16)
[2018-06-24 04:26] LABS: Baso # (Auto) 0.1 th/mm3 (0.0-0.2); Eos # (Auto) 0.1 th/mm3 (0.0-0.4); Eos % (Auto) 0.8 % (0.0-4.0); Hematocrit 45.8 % (39.0-51.0); Hemoglobin 15.4 gm/dL (13.0-17.0); Lymph # (Auto) 1.4 th/mm3 (1.0-4.8); Lymph % (Auto) 18.4 % (9.0-44.0); Mean Corpuscular HGB Conc 33.7 % (32.0-36.0); Mean Corpuscular Hemoglobin 36.5 pg (27.0-34.0); Mean Corpuscular Volume 108.6 fL (80.0-100.0); Mean Platelet Volume 9.3 fL (7.0-11.0); Mono # (Auto) 1.4 th/mm3 (0.0-0.9); Mono % (Auto) 17.7 % (0.0-8.0); Neut # (Auto) 4.7 th/mm3 (1.8-7.7); Neut % (Auto) 62.1 % (16.0-70.0); Platelet Count 216 th/mm3 (150-450); Red Blood Count 4.21 mil/mm3 (4.50-5.90); White Blood Count 7.6 th/mm3 (4.0-11.0)
[2018-06-24 04:58] LABS: Anion Gap 10 meq/L (5-15); Blood Urea Nitrogen 9 mg/dL (7-18); Calcium 8.5 mg/dL (8.5-10.1); Carbon Dioxide 29.1 meq/L (21.0-32.0); Chloride 105 meq/L (98-107); Glomerular Filtration Rate Greater Than 89 mL/min (>89); Glucose,Random 91 mg/dL (74-106); Potassium 3.6 meq/L (3.5-5.1); Sodium 144 meq/L (136-145)
[2018-06-24] MEDS: Folic Acid 1 MG Tablet PO SCH (09:14)
[2018-06-24] MEDS: predniSONE 20 MG Tablet PO SCH (09:14)
[2018-06-24] MEDS: Multivitamin/Minerals Therapeutic Tablet PO SCH (09:14)
[2018-06-24] MEDS: dilTIAZem 30 MG Tablet PO SCH ×2 (09:14→17:16)
[2018-06-24] MEDS: Aspirin 325 MG Tablet PO SCH (09:15)
--- NOTE | 2018-06-24 10:38 | P.PN ---
Subjective Interval history: Follow-up hypertension. Called by RN secondary to elevated blood pressure. Denies headache or dizziness. Started on Cardizem. Reports of pleuritic chest pain with coughing and movements. He is also tender on his chest wall. UDS is still pending. He wants to have his right ear checked complaining of pain and slightly decreased hearing but no bleeding. Physical Exam Vital signs: Vital Signs 06/23/18 10:41 06/23/18 11:30 06/23/18 16:00 Temperature 98.2 F 98.5 F Pulse Rate 89 77 Respiratory Rate 17 17 Blood Pressure 136/95 H 132/90 Pulse Oximetry 94 L 96 94 L 06/23/18 16:12 06/23/18 20:00 06/23/18 20:15 Temperature 97.7 F Pulse Rate 89 93 H 91 H Respiratory Rate 18 20 20 Blood Pressure 144/105 H Pulse Oximetry 96 98 06/24/18 00:00 06/24/18 03:16 06/24/18 07:51 Temperature 97.9 F 97.7 F Pulse Rate 90 89 80 Respiratory Rate 18 18 20 Blood Pressure 132/89 138/101 H Pulse Oximetry 98 98 Intake & Output 06/23/18 06/24/18 06/24/18 18:59 06:59 18:59 Intake Total 240 / 240 Output Total 400 / 400 Balance -160 / -160 Weight 105 kg Intake: Oral 240 / 240 Output: Urine 400 / 400 Narrative: GENERAL: Well-developed, well-nourished in no distress SKIN: Warm and dry. Right ear canal slightly red but not swollen no discharge. Dry cerumen noted CARDIOVASCULAR: Irregularly irregular RESPIRATORY: No accessory muscle use. Expiratory wheezes not heard. Breath sounds equal bilaterally. Tender chest wall GASTROINTESTINAL: Abdomen soft, non-tender, nondistended. MUSCULOSKELETAL: Extremities without clubbing, cyanosis, or edema. No obvious deformities. NEUROLOGICAL: Awake and alert. No obvious cranial nerve deficits. Motor grossly within normal limits. Five out of 5 muscle strength in the arms and legs. Normal speech. PSYCHIATRIC: Appropriate mood and affect; insight and judgment normal. Results - Labs CBC & Chem 7: 06/24/18 04:07 06/24/18 04:07 Laboratory Results - last 24 hr 06/23/18 06/23/18 06/24/18 05:53 11:45 04:07 WBC 7.6 RBC 4.21 L Hgb 15.4 Hct 45.8 MCV 108.6 H MCH 36.5 H MCHC 33.7 RDW 15.0 Plt Count 216 MPV 9.3 Neut % (Auto) 62.1 Lymph % (Auto) 18.4 [place] % (Auto) 17.7 H Eos % (Auto) 0.8 Baso % (Auto) 1.0 Neut # (Auto) 4.7 Lymph # (Auto) 1.4 [place] # (Auto) 1.4 H Eos # (Auto) 0.1 Baso # (Auto) 0.1 WBC Differential . Differential Comment Auto diff final Sodium Potassium Chloride Carbon Dioxide Anion Gap BUN Creatinine Estimated GFR Random Glucose Calcium Total Creatine Kinase 123 Troponin I 0.17 H TSH 1.230 06/24/18 04:07 WBC RBC Hgb Hct MCV MCH MCHC RDW Plt Count MPV Neut % (Auto) Lymph % (Auto) [place] % (Auto) Eos % (Auto) Baso % (Auto) Neut # (Auto) Lymph # (Auto) [place] # (Auto) Eos # (Auto) Baso # (Auto) WBC Differential Differential Comment Sodium 144 Potassium 3.6 Chloride 105 Carbon Dioxide 29.1 Anion Gap 10 BUN 9 Creatinine 0.80 Estimated GFR Greater than 89 Random Glucose 91 Calcium 8.5 Total Creatine Kinase Troponin I TSH - Imaging ITS Impressions Chest X-Ray 06/23/18 00:09 CONCLUSION: No acute cardiopulmonary abnormality is identified. - Procedures none Assessment and Plan - Plan 1. Chest pain/elevated troponin EKG negative for ischemia, personally reviewed Currently pain-free. Continue aspirin and obtain Lexiscan today. Follow-up UDS He is also tender on his chest wall so this could also be musculoskeletal. 2. ? History of A. fib Patient denies history of atrial fibrillation There is no previous documentation of atrial fibrillation in the medical record was reviewed at length Telemetry shows A. fib with controlled ventricular response. Chads score of 1 continue aspirin. TSH and echocardiogram unremarkable 3. ? CHF Patient reports he had a "swollen heart" during a previous ER visit Previous ER documentation shows cardiomegaly Patient reports he was previously prescribed heart pills which he has been unable to continue taking as he does not have insurance BNP within normal limits echo EF 50% 4. Alcohol abuse Thiamine/folate/multivitamins [facility] protocol Monitor for signs of withdrawal 5. COPD exacerbation which I believe the primary reason for his symptomatology. Chest x-ray without acute findings. Improved. Tobacco cessation. Continue scheduled nebulization, prednisone and doxycycline 6. Hypertension. Start Cardizem and monitor DVT prophylaxis with heparin Discharge Planning: Discharge later today if negative stress tests with improved BP. Follow-up UDS Discharge patient to home Condition on discharge: Improved Regular Diet as tolerated Ad Jenn activity no driving Rx written: Albuterol and Atrovent inhaler, aspirin, diltiazem, doxycycline, prednisone and thiamine Follow-up with primary care physician
[2018-06-24 11:05] LABS: Amphetamine Screen,Urine Neg (Neg); Barbiturate Screen,Urine Neg (Neg); Cannabinoid Screen,Urine Neg (Neg); Cocaine Screen,Urine Pos (Neg)
[2018-06-24 11:06] LABS: Opiate Screen,Urine Neg (Neg)
--- NOTE | 2018-06-24 13:58 | ECG ---
Date Performed: 06/23/2018 Time Performed: 16:23:34 PTAGE: 62 years EKG: Atrial fibrillation. Left axis deviation Inferior infarct - age undetermined Abnormal ECG S anabel the PREVIOUS TRACING , no significant change noted PREVIOUS TRACIN06/23/2018 07.55 DOCTOR: Anayeli Rod Interpretating Date/Time 06/24/2018 13:56:15
[2018-06-24] MEDS ORDERED: Regadenoson Inj 0.4 MG/5 ML Syringe IV.PUSH ONE (15:25)
--- NOTE | 2018-06-24 16:27 | NM ---
EXAM DATE: 06/24/2018 4:23 PM EDT AGE/SEX: 62 years / Male INDICATIONS:Coronary artery disease. . Chest pain with dyspnea. CLINICAL DATA: This is the patient's initial encounter. Patient reports that signs and symptoms have been present for 1 day and indicates a pain score of 4/10. MEDICAL/SURGICAL HISTORY: Hypertension. Cardiomegaly. ETOH abuse. None. COMPARISON: No prior exams available for comparison. DOSE: 10.1 mCi Tc 99m Myoview at rest 30.3 mCi [id number] at stress 0.2 mg Lexiscan STRESS SYMPTOMS: Short of breath. EJECTION FRACTION: >70 % TECHNIQUE: The patient underwent pharmacologic stress with infusion of prescribed dose. Continuous ECG tracing was monitored during stress. Gated SPECT imaging was performed after stress and conventi onal SPECT imaging was performed at rest. The examination was performed on a SPECT/CT scanner, both attenuation and non-corrected datasets were reviewed. FINDINGS: Distribution: The maximum perfused segment at stress is in the anterior lateral wall wall. Perfusion Study: The pattern of perfusion at stress is within normal limits. Gated Study: There are intact wall motion and wall thickening without hypokinetic or dyskinetic segm ents. The ejection fraction is calculated at >70%. RISK CATEGORY: Low (<1% Annual Motality Rate) CONCLUSION: 1. Negative for stress-induced ischemia Electronically signed by: Donell Gibson MD 06/24/2018 4:26 PM EDT
[2018-06-25] MEDS: dilTIAZem 30 MG Tablet PO SCH ×2 (00:50→08:56)
[2018-06-25] MEDS: Heparin - SQ 10,000 UNITS/ML Vial SQ SCH ×2 (05:26→08:57)
[2018-06-25] MEDS: Aspirin 325 MG Tablet PO SCH (08:55)
[2018-06-25] MEDS: Multivitamin/Minerals Therapeutic Tablet PO SCH (08:55)
[2018-06-25] MEDS: predniSONE 20 MG Tablet PO SCH (08:56)
[2018-06-25] MEDS: Folic Acid 1 MG Tablet PO SCH (08:56)
--- NOTE | 2018-06-25 10:16 | P.DS ---
Date of admission: 06/23/18 01:34 Primary care physician: UNKNOWN Brief History from admission: 62-year-old male with past medical history significant for alcohol abuse presents to the emergency department for evaluation of chest pain. The patient reports that he has been having substernal chest pain/pressure for the past 4 hours. He reports drinking approximately 4 alcoholic beverages this evening. He endorses associated shortness of breath. No diaphoresis. No fever/chills. No abdominal pain. No nausea/vomiting/diarrhea. No lateralizing signs/ symptoms. DS: Medications - Discharge Medications Prescriptions: albuterol sulfate [ProAir HFA] 1 puff INHALATION Q4-6H PRN #1 g PRN Reason: Shortness Of Breath Or Wheezing aspirin 162 mg PO DAILY #60 tab diltiazem HCl [DILT-XR] 120 mg PO DAILY #30 cap doxycycline hyclate 100 mg PO Q12HR #12 tab ipratropium bromide [Atrovent HFA] 1 puff INHALATION QID #1 g prednisone 40 mg PO DAILY #6 tab thiamine HCl (vitamin B1) 100 mg PO DAILY #30 tab DS: Summary Hospital Course: 1. Chest pain/elevated troponin EKG negative for ischemia, personally reviewed Neg Yuri. Chest pain and elevated troponin likely multifactorial from musculoskeletal, A. fib, COPD and cocaine. 2. ? History of A. fib Patient denies history of atrial fibrillation There is no previous documentation of atrial fibrillation in the medical record was reviewed at length Telemetry shows A. fib with controlled ventricular response. Chads score of 1 continue aspirin. TSH and echocardiogram unremarkable 3. ? CHF Patient reports he had a "swollen heart" during a previous ER visit Previous ER documentation shows cardiomegaly Patient reports he was previously prescribed heart pills which he has been unable to continue taking as he does not have insurance BNP within normal limits echo EF 50% 4. Alcohol abuse Thiamine/folate/multivitamins [facility] protocol Monitor for signs of withdrawal 5. COPD exacerbation which I believe the primary reason for his symptomatology. Chest x-ray without acute findings. Improved. Tobacco cessation. Continue scheduled nebulization, prednisone and doxycycline 6. Hypertension. Continue Cardizem and monitor DVT prophylaxis with heparin - Time Spent with Patient Total time spent providing and/or coordinating discharge services: Greater than 30 minutes - Quality: VTE Deep Vein Thrombosis/Pulmonary Embolism Present on Admission: No Exam Vital signs: Vital Signs 06/24/18 11:00 06/24/18 11:44 06/24/18 12:00 Temperature 98.2 F Pulse Rate 63 72 76 Respiratory Rate 18 Blood Pressure 149/99 H Pulse Oximetry 96 06/24/18 12:08 06/24/18 13:00 06/24/18 14:00 Temperature Pulse Rate 79 89 89 Respiratory Rate 20 Blood Pressure Pulse Oximetry 06/24/18 15:00 06/24/18 16:00 06/24/18 17:00 Temperature 98.6 F Pulse Rate 80 90 114 H Respiratory Rate 16 Blood Pressure 150/106 H Pulse Oximetry 98 06/24/18 18:00 06/24/18 19:00 06/24/18 20:00 Temperature 98.1 F Pulse Rate 105 H 99 H 85 Respiratory Rate 20 Blood Pressure 145/84 H Pulse Oximetry 98 06/24/18 20:02 06/24/18 21:00 06/24/18 22:00 Temperature Pulse Rate 89 87 108 H Respiratory Rate 16 Blood Pressure Pulse Oximetry 99 06/24/18 23:00 06/24/18 23:58 06/25/18 01:00 Temperature 98 F Pulse Rate 89 89 93 H Respiratory Rate 18 Blood Pressure 124/80 Pulse Oximetry 98 06/25/18 02:00 06/25/18 03:00 06/25/18 04:00 Temperature 99.4 F Pulse Rate 89 89 106 H Respiratory Rate 18 Blood Pressure 135/89 Pulse Oximetry 98 06/25/18 05:00 06/25/18 07:00 06/25/18 08:00 Temperature 98.6 F Pulse Rate 113 H 82 118 H Respiratory Rate 16 Blood Pressure 162/97 H Pulse Oximetry 98 06/25/18 08:24 06/25/18 09:00 06/25/18 10:00 Temperature Pulse Rate 90 118 H 94 H Respiratory Rate 17 Blood Pressure Pulse Oximetry 97 Intake & Output 06/24/18 06/25/18 06/25/18 18:59 06:59 18:59 Intake Total 720 / 720 240 / 240 Balance 720 / 720 240 / 240 Intake: Oral 720 / 720 240 / 240 Other: # Voids 3 4 Date of Last Bowel Movement 06/24/18 # Bowel Movements 1 Narrative: GENERAL: Well-developed, well-nourished in no distress SKIN: Warm and dry. Right ear canal slightly red but not swollen no discharge. Dry cerumen noted CARDIOVASCULAR: Irregularly irregular RESPIRATORY: No accessory muscle use. Expiratory wheezes not heard. Breath sounds equal bilaterally. Tender chest wall GASTROINTESTINAL: Abdomen soft, non-tender, nondistended. MUSCULOSKELETAL: Extremities without clubbing, cyanosis, or edema. No obvious deformities. NEUROLOGICAL: Awake and alert. No obvious cranial nerve deficits. Motor grossly within normal limits. Five out of 5 muscle strength in the arms and legs. Normal speech. PSYCHIATRIC: Appropriate mood and affect; insight and judgment normal. Results Procedures completed during hospitalization: none Labs on day of discharge: Labs from last 24 hours 06/24/18 09:00 Urine Opiates Screen Neg Ur Barbiturates Screen Neg Ur Amphetamines Screen Neg U Benzodiazepines Scrn Neg Urine Cocaine Screen Pos H U Cannabinoids Screen Neg - Impressions ITS Impressions Chest X-Ray 06/23/18 00:09 CONCLUSION: No acute cardiopulmonary abnormality is identified. Myocardial Perfusion Scan Nuc Med 06/24/18 00:00 CONCLUSION: 1. Negative for stress-induced ischemia Discharge Plan - Discharge Disposition Patient Disposition: 01 Discharge Home - Discharge Condition Condition: Stable - Discharge Order Discharge Orders: Discharge Order (Routine); Ordered 06/25/18 Ordered By: Dinesh Leong - Physicians Team Primary Care Provider: UNKNOWN, Attending Provider: Dinesh Leong
== END 2018-06-25 12:10 | disposition home or self-care (01) ==
LOC: NEPC 23:19 → NEDH 06-23 01:34 → HCPC 06-23 03:19
PROVIDERS: ADMIT Internal Medicine; ATTEND Internal Medicine

== ENCOUNTER 2018-07-02 21:17 | Inpatient (IN) ==
[2018-07-02] MEDS ORDERED: dilTIAZem Inj 125 MG in Sodium Chlor 0.9% Inj 100 ML IV.CONT PRN (21:36)
--- NOTE | 2018-07-02 22:04 | XR ---
EXAM DATE: 07/02/2018 9:49 PM EDT AGE/SEX: 62 years / Male INDICATIONS: Chest pain and shortness of breath. CLINICAL DATA: This is the patient's subsequent encounter. Patient reports that signs and symptoms h ave been present for 1 week and indicates a pain score of 5/10. MEDICAL/SURGICAL HISTORY: None. None. COMPARISON: [facility], CHEST 1V SINGLE AP, 06/23/2018. . FINDINGS: Single AP view the chest. The lungs are clear. Cardiomediastinal silhouette within normal limits. No evidence of pleural effusion or pneumothorax. CONCLUSION: No acute cardiopulmonary disease identified. Electronically signed by: Shai Frey MD 07/02/2018 10:03 PM EDT
[2018-07-02 22:23] LABS: Baso # (Auto) 0.1 th/mm3 (0.0-0.2); Baso % (Auto) 1.3 % (0.0-2.0); Eos # (Auto) 0.3 th/mm3 (0.0-0.4); Eos % (Auto) 3.5 % (0.0-4.0); Hematocrit 44.8 % (39.0-51.0); Hemoglobin 15.1 gm/dL (13.0-17.0); Lymph % (Auto) 23.5 % (9.0-44.0); Mean Corpuscular HGB Conc 33.6 % (32.0-36.0); Mean Corpuscular Hemoglobin 36.4 pg (27.0-34.0); Mean Corpuscular Volume 108.4 fL (80.0-100.0); Mean Platelet Volume 9.6 fL (7.0-11.0); Mono # (Auto) 1.5 th/mm3 (0.0-0.9); Mono % (Auto) 16.8 % (0.0-8.0); Neut # (Auto) 4.7 th/mm3 (1.8-7.7); Neut % (Auto) 54.9 % (16.0-70.0); Platelet Count 271 th/mm3 (150-450); Red Blood Count 4.13 mil/mm3 (4.50-5.90); Red Cell Distribution Width 14.8 % (11.6-17.2); White Blood Count 8.6 th/mm3 (4.0-11.0)
--- NOTE | 2018-07-02 22:26 | ED ---
HPI General Chief Complaint: Chest Pain Stated Complaint: Cardiac Time Seen by Provider: 07/02/18 21:29 History of Present Illness HPI narrative: This is a 62-year-old male with a history of atrial fibrillation , hypertension, who presents today with chest tightness and pain as well as elevated heart rate. Patient was recently admitted to the hospital for A. fib with RVR. He also had bronchitis/COPD. He states that he is homeless and the day that he was discharged, he was unable to fill any of his medications. He reports pain across both sides of his upper chest. There is no diaphoresis. He denies any dyspnea. He reports the pain as a 6 out of 10 on the pain scale. There are no other complaints at the time of my examination. Related Data Previous Rx's Medication Instructions Recorded albuterol sulfate [ProAir HFA] 1 puff INHALATION Q4-6H PRN #1 g 06/24/18 aspirin 162 mg PO DAILY #60 tab 06/24/18 diltiazem HCl [DILT-XR] 120 mg PO DAILY #30 cap 06/24/18 doxycycline hyclate 100 mg PO Q12HR #12 tab 06/24/18 ipratropium bromide [Atrovent HFA] 1 puff INHALATION QID #1 g 06/24/18 prednisone 40 mg PO DAILY #6 tab 06/24/18 thiamine HCl (vitamin B1) 100 mg PO DAILY #30 tab 06/24/18 Allergies Allergy/AdvReac Type Severity Reaction Status Date / Time No Known Allergies Allergy Unverified 07/02/18 21:23 Review of Systems ROS: all other systems reviewed are negative Constitutional Denies chills and Denies fever(s) Eyes Reports system reviewed and no additional complaints, except [facility] E[facility] Reports system reviewed and no additional complaints, except as [facility] Cardiovascular Reports chest pain (As per HPI), Denies diaphoresis, Reports rapid heart rate, Reports irregular heart rhythm and Denies dyspnea Respiratory Denies chest congestion, Denies cough and Denies dyspnea Gastrointestinal Denies abdominal pain, Denies nausea and Denies vomiting Genitourinary Reports system reviewed and no additional complaints, except as [facility] Musculoskeletal Reports system reviewed and no additional complaints, except as [facility] Integumentary/Breasts Reports system reviewed and no additional complaints, except as [facility] Neurologic Reports system reviewed and no additional complaints, except as [facility] Family History Family History Other Family history normal Social History Social History Substance History: No History of Abuse Second Hand Smoke Exposure: No Smoking Status: Current every day smoker Tobacco Type: Cigarettes How Often Do You Have a Drink Containing Alcohol: 2 to 3 times a week Recent Travel in [facility] within the Last 8 Weeks: No Recent Out of Country Travel within the Last 8 Weeks: No Immunization History Tetanus Immunization: <5 Years Exam Narrative Exam Narrative: GENERAL: Well-developed well-nourished male in no acute respiratory distress. SKIN: Focused skin assessment warm/dry. HEAD: Atraumatic. Normocephalic. EYES: No scleral icterus. No injection or drainage. ENT: No nasal bleeding or discharge. Mucous membranes pink and moist. NECK: Trachea midline. No JVD. Supple. CARDIOVASCULAR: Irregularly irregular with a rate in the 140s 150s. No murmur appreciated. RESPIRATORY: No accessory muscle use. Clear to auscultation. Breath sounds equal bilaterally. GASTROINTESTINAL: Abdomen soft, non-tender, nondistended. Hepatic and splenic margins not palpable. MUSCULOSKELETAL: No obvious deformities. No clubbing. No cyanosis. No edema. NEUROLOGICAL: Awake and alert. No obvious cranial nerve deficits. Motor grossly within normal limits. Normal speech. Course Initial Documented Vital Signs Temperature 98.4 F 07/02/18 21:25 Pulse Rate 149 H 07/02/18 21:25 Respiratory Rate 16 07/02/18 21:25 Blood Pressure 128/86 07/02/18 21:25 Pulse Oximetry 96 07/02/18 21:25 Last Documented Vital Signs Temperature 98.4 F 07/02/18 21:25 Pulse Rate 87 07/02/18 23:36 Respiratory Rate 16 07/02/18 22:50 Blood Pressure 93/54 L 07/02/18 23:36 Pulse Oximetry 100 07/02/18 23:36 Medical Decision Making MDM Narrative Medical decision making narrative: 62-year-old male with a recent new diagnosis of A. fib with RVR, presents here with complaints of chest pain and rapid heart rate. Patient has A. fib with RVR. His rate was in the 140s 150s. He has been started on diltiazem. He was given a bolus followed by drip. He is currently rate controlled under 100. Troponin was elevated at 0.08. It was elevated previously with his A. fib RVR. His creatinine is also increased from 1 week ago. It was 0.8 it is now 1.39. He has been given 1 L of IV fluid. He will be admitted to the hospital for rate control. He will be restarted on his medications and have his troponin followed. [facility]. Since he is on a drip, he will be a full admission. Medical Screen Exam Complete: Yes Emergency Medical Condition: Yes Differential Diagnosis Differential Diagnosis: A. fib with RVR versus ACS versus metabolic derangement versus medication noncompliance Lab Data Result diagrams: 07/02/18 21:50 07/02/18 21:50 Lab Results 07/02/18 07/02/18 Range/Units 21:50 21:50 WBC 8.6 (4.0-11.0) th/mm3 RBC 4.13 L (4.50-5.90) mil/mm3 Hgb 15.1 (13.0-17.0) gm/dL Hct 44.8 (39.0-51.0) % MCV 108.4 H (80.0-100.0) fL MCH 36.4 H (27.0-34.0) pg MCHC 33.6 (32.0-36.0) % RDW 14.8 (11.6-17.2) % Plt Count 271 (150-450) th/mm3 MPV 9.6 (7.0-11.0) fL Neut % (Auto) 54.9 (16.0-70.0) % Lymph % (Auto) 23.5 (9.0-44.0) % [place] % (Auto) 16.8 H (0.0-8.0) % Eos % (Auto) 3.5 (0.0-4.0) % Baso % (Auto) 1.3 (0.0-2.0) % Neut # (Auto) 4.7 (1.8-7.7) th/mm3 Lymph # (Auto) 2.0 (1.0-4.8) th/mm3 [place] # (Auto) 1.5 H (0.0-0.9) th/mm3 Eos # (Auto) 0.3 (0.0-0.4) th/mm3 Baso # (Auto) 0.1 (0.0-0.2) th/mm3 WBC Differential . Differential Comment Auto diff final Sodium 141 (136-145) meq/L Potassium 4.0 (3.5-5.1) meq/L Chloride 108 H (98-107) meq/L Carbon Dioxide 23.5 (21.0-32.0) meq/L Anion Gap 10 (5-15) meq/L BUN 10 (7-18) mg/dL Creatinine 1.38 H (0.60-1.30) mg/dL Estimated GFR 64 L (>89) mL/min Random Glucose 116 H (74-106) mg/dL Calcium 8.5 (8.5-10.1) mg/dL Total Bilirubin 0.9 (0.2-1.0) mg/dL AST 67 H (15-37) U/L ALT 60 (12-78) U/L Alkaline Phosphatase 257 H (45-117) U/L Total Creatine Kinase 94 (39-308) U/L Troponin I 0.08 H (0.02-0.05) ng/mL Total Protein 7.4 (6.4-8.2) g/dL Albumin 2.7 L (3.4-5.0) g/dL Imaging Data Radiologist's impression: Chest X-Ray 07/02/18 21:29 CONCLUSION: No acute cardiopulmonary disease identified. Discharge Plan Physicians Team ED Provider: Hugo Prado Primary Care Provider: UNKNOWN, Rxs /Orders / Referrals /Forms Prescriptions: No Action doxycycline hyclate 100 mg Tablet 100 mg PO Q12HR Qty: 12 RF: 0 ipratropium bromide [Atrovent HFA] 17 mcg/actuation Hfa Aerosol Inhaler 1 puff INHALATION QID Qty: 1 RF: 0 albuterol sulfate [ProAir HFA] 90 mcg/actuation Hfa Aerosol Inhaler 1 puff INHALATION Q4-6H PRN (Reason: Shortness Of Breath Or Wheezing) Qty: 1 RF: 0 aspirin 81 mg Tablet,Chewable 162 mg PO DAILY Qty: 60 RF: 0 prednisone 20 mg Tablet 40 mg PO DAILY Qty: 6 RF: 0 thiamine HCl (vitamin B1) 100 mg Tablet 100 mg PO DAILY Qty: 30 RF: 0 diltiazem HCl [DILT-XR] 120 mg Capsule,Ext.Rel 24h Degradable 120 mg PO DAILY Qty: 30 RF: 0 Discharge Interventions Interventions: Vital Signs Last Done: 07/02/18 21:28 Status ED Status: With Doctor
[2018-07-02 22:40] LABS: Alanine Aminotransferase 60 U/L (12-78)
[2018-07-02 22:43] LABS: Albumin 2.7 g/dL (3.4-5.0); Alkaline Phosphatase 257 U/L (45-117); Anion Gap 10 meq/L (5-15); Aspartate Aminotransferase 67 U/L (15-37); Blood Urea Nitrogen 10 mg/dL (7-18); Calcium 8.5 mg/dL (8.5-10.1); Carbon Dioxide 23.5 meq/L (21.0-32.0); Chloride 108 meq/L (98-107); Glomerular Filtration Rate 64 mL/min (>89); Glucose,Random 116 mg/dL (74-106); Sodium 141 meq/L (136-145); Total Protein 7.4 g/dL (6.4-8.2); Troponin I 0.08 ng/mL (0.02-0.05)
[2018-07-02 22:44] LABS: Creatine Kinase 94 U/L (39-308)
[2018-07-02] MEDS ORDERED: Sod Chloride 0.9% Inj 1,000 ML IV.CONT ONE (23:17)
[2018-07-02] MEDS ORDERED: LORazepam 1 MG Tablet PO PRN (23:37)
[2018-07-02] MEDS ORDERED: Haloperidol Inj 5 MG/ML Ampul IV.PUSH PRN (23:37)
[2018-07-02] MEDS ORDERED: Bisacodyl 10 MG Supp RECTAL PRN (23:39)
[2018-07-02] MEDS ORDERED: Acetaminophen 325 MG Tablet PO PRN (23:39)
--- NOTE | 2018-07-03 00:51 | P.HPIM ---
History of Present Illness Primary Care Physician: UNKNOWN History of Present Illness: This is a 62-year-old Homeless male with a PMH of HTN, COPD, Hyperlipidemia, A. fib, Alcohol Abuse, Cocaine Abuse and Tobacco Abuse who presented to ER with complaints of chest pain starting earlier today. Recent admit 06/23-06/25/18 for similar complaints, +cocaine, Trop 0.16 at that time, S/p Nuclear Stress 06/24/18 which was negative, Echo 06/23/18 w/ EF 60-65%, was d/c'd on ASA, Diltiazem, Prednisone, Albuterol, Doxycycline and Thiamine, however states he hasn't taken any medications except for ASA since his discharge because he can't afford them. Comes in tonight w/ substernal chest pain, 07/27, non-radiating, associated w/ SOB. On arrival, noted to be in A-fib w/ RVR, HR 140-150's, s/p Cardizem IV, currently on Cardizem gtt. O2 sat 98% on RA, Afebrile. CBC at baseline. Creatinine 1.38, previously neuro 0.80 on . Troponin 0.08, previously 0.17 on 06/23/2018. CXR with no acute findings. Currently chest pain free. - Diagnosis (1) Atrial fibrillation with RVR (2) Chest pain (3) Alcohol abuse (4) Cocaine abuse (5) CASSIE (acute kidney injury) Inpatient Certification: I certify that the inpatient services were ordered in accordance with Medicare regulations governing the order. This includes certification that hospital inpatient services are reasonable and necessary and in the case of services not specified as inpatient-only under 42 CFR 419.22(n), that they are appropriately provided as inpatient services in accordance to with the 2-midnight benchmark under 43 CFR 412.3(e) Estimated Total Length of Stay (Days): 2 Plans for Post Hospital Care: Not yet determined Review of Systems PAST FAMILY HISTORY: Reviewed. No h/o DM or CAD All other systems reviewed negative except as [facility] - History History Provided By: Patient - Medical History Medical History: Medical History (Last Reviewed 07/02/18 @ 21:27 by Soila Joés) Afib Cardiomegaly ETOH abuse Hypertension - Surgical History Surgical History: Surgical History (Last Reviewed 07/02/18 @ 21:27 by Soila oJsé) No history of previous surgery - Family History Family History: Family History (Last Updated 06/23/18 @ 01:38 by Lawanda Mack MD) Other Family history normal - Tobacco History Second Hand Smoke Exposure: No Tobacco Use In Past 30 Days: Yes Smoking Status: Current every day smoker Tobacco Type: Cigarettes - Alcohol History How Often Do You Have a Drink Containing Alcohol: 2 to 3 times a week - Substance Use History Substance History: No History of Abuse - Travel History Recent Travel in the [place] Within the Last 8 Weeks: No Recent Travel Out of the Country Within the Last 8 Weeks: No - Immunization History Tetanus Immunization: <5 Years Medications and Allergies Active Medications: Active Medications Acetaminophen (Tylenol) 650 mg PO Q4H PRN PRN Reason: Temp > 100.4 Al Hydroxide/Mg Hydroxide (Milk Of Magnesia Liq) 30 ml PO Q12H PRN PRN Reason: Mild Constipation Aspirin (Aspirin Chew) 162 mg PO DAILY LINDSAY Bisacodyl (Dulcolax Supp) 10 mg RECTAL DAILY PRN PRN Reason: SEVERE CONSITIPATION Flumazenil (Romazecon Inj) 0.2 mg IV.PUSH Q1M PRN PRN Reason: OVERSEDATION Folic Acid (Folic Acid) 1 mg PO DAILY LINDSAY Stop: 07/08/18 08:59 Haloperidol Lactate (Haldol Inj) 1 mg IV.PUSH Q15M PRN PRN Reason: for severe agitation Diltiazem HCl 125 mg/ Sodium (Chloride) 125 mls @ 5 mls/hr IV.CONT TITRATE PRN ; Protocol PRN Reason: Per Protocol Last Titration: 07/02/18 23:38 Dose: 0 mg/hr, 0 mls/hr Sodium Chloride (Ns Inj) 1,000 mls @ 100 mls/hr IV.CONT .Q10H LINDSAY Ipratropium [place] (Atroven Hfa Inh) 1 puff INH QID LINDSAY Lactulose (Lactulose Liq) 30 ml PO DAILY PRN PRN Reason: SEVERE CONSITIPATION Lorazepam (Ativan) 2 mg PO Q2H PRN PRN Reason: for CIWA 11-14 Lorazepam (Ativan Inj) 2 mg IV.PUSH Q2H PRN PRN Reason: for CIWA 11-14 Lorazepam (Ativan Inj) 2 mg IV.PUSH Q1H PRN PRN Reason: for CIWA 15-20 Lorazepam (Ativan Inj) 2 mg IV.PUSH Q15M PRN PRN Reason: for CIWA > 20 Lorazepam (Ativan Inj) 1 mg IV.PUSH Q4H PRN PRN Reason: for CIWA 8-10 Lorazepam (Ativan) 1 mg PO Q4H PRN PRN Reason: for CIWA 8-10 Multivitamins/Minerals (Theragran-M) 1 tab PO DAILY [facility] Stop: 07/08/18 08:59 Ondansetron HCl (Zofran Inj) 4 mg IV.PUSH Q6H PRN PRN Reason: NAUSEA OR VOMITING Senna/Docusate Sodium (Alessandra-Colace) 1 tab PO BID [facility] Sennosides (Senokot) 17.2 mg PO Q12H PRN PRN Reason: Moderate Constipation Sodium Chloride (Ns Flush) 2 ml IV.FLUSH UNSCH PRN PRN Reason: FLUSH AFTER USING IV ACCESS Thiamine HCl (Vitamin B1) 100 mg PO DAILY [facility] Last Admin: 07/03/18 00:35 Dose: 100 mg Allergies Allergy/AdvReac Type Severity Reaction Status Date / Time No Known Allergies Allergy Unverified 07/02/18 21:23 Exam Vital signs: Vital Signs 07/02/18 21:25 07/02/18 21:28 07/02/18 21:58 Temperature 98.4 F Pulse Rate 149 H 156 H 86 Respiratory Rate 16 16 Blood Pressure 128/86 128/86 Pulse Oximetry 96 98 07/02/18 22:50 07/02/18 23:36 07/02/18 23:43 Temperature Pulse Rate 88 87 87 Respiratory Rate 16 Blood Pressure 101/68 93/54 L Pulse Oximetry 100 07/03/18 00:35 Temperature Pulse Rate 80 Respiratory Rate 16 Blood Pressure 95/63 L Pulse Oximetry 97 Intake & Output 07/02/18 07/02/18 07/03/18 06:59 18:59 06:59 Weight 104.326 kg Narrative: PE: GENERAL: Middle-age male in no acute distress. SKIN: Focused skin assessment warm and dry. HEENT: PERRLA, EOMI. No scleral icterus or conjunctival pallor. No lid lag or facial droop. CARDIOVASCULAR: Irregularly irregular, and A. fib, HR 80-90s. No obvious murmurs to auscultation. No chest tenderness to palpation. RESPIRATORY: No obvious rhonchi or wheezing. Clear to auscultation. Breath sounds equal bilaterally. GASTROINTESTINAL: Abdomen soft, non-tender, nondistended. BS normal. MUSCULOSKELETAL: Extremities without clubbing, cyanosis, or edema. No obvious deformities. NEUROLOGICAL: Awake, alert and oriented x4. No focal neurologic deficits. Moving both upper and lower extremities spontaneously. PSYCHIATRIC: Appropriate mood and affect. Insight and judgment normal. Results - Labs CBC & Chem 7: 07/02/18 21:50 07/02/18 21:50 Labs: Short CBC 07/02/18 Range/Units 21:50 WBC 8.6 (4.0-11.0) th/mm3 Hgb 15.1 (13.0-17.0) gm/dL Hct 44.8 (39.0-51.0) % Plt Count 271 (150-450) th/mm3 BMP 07/02/18 21:50 Sodium 141 Potassium 4.0 Chloride 108 H Carbon Dioxide 23.5 BUN 10 Creatinine 1.38 H Calcium 8.5 Cardiac Enzymes 07/02/18 Range/Units 21:50 Total Creatine Kinase 94 (39-308) U/L Troponin I 0.08 H (0.02-0.05) ng/mL Liver Function 07/02/18 Range/Units 21:50 Total Bilirubin 0.9 (0.2-1.0) mg/dL AST 67 H (15-37) U/L ALT 60 (12-78) U/L Alkaline Phosphatase 257 H (45-117) U/L Albumin 2.7 L (3.4-5.0) g/dL - Imaging Impressions Chest X-Ray 07/02/18 21:29 CONCLUSION: No acute cardiopulmonary disease identified. Caprini VTE Risk Assessment Caprini VTE Risk Assessment: No/Low Risk (score <= 1) Caprini Risk Assessment Model: Point Value = 1 Point Value = 2 Point Value = 3 Point Value = 5 Age 41-60 Minor surgery BMI > 25 kg/m2 Swollen legs Varicose veins or History of unexplained or recurrent spontaneous Oral contraceptives or hormone replacement Sepsis (< 1 month) Serious lung disease, including pneumonia (< 1 month) Abnormal pulmonary function Acute myocardial infarction Congestive heart failure (< 1 month) History of inflammatory bowel disease Medical patient at bed rest Age 61-74 Arthroscopic surgery Major open surgery (> 45 min) Laparoscopic surgery (> 45 min) Malignancy Confined to bed (> 72 hours) Immobilizing plaster cast Central venous access Age >= 75 History of VTE Family history of VTE Factor V Leiden Prothrombin [id number] Lupus anticoagulant Anticardiolipin antibodies Elevated serum homocysteine Heparin-induced thrombocytopenia Other congenital or acquired thrombophilia Stroke (< 1 month) Elective arthroplasty Hip, pelvis, or leg fracture Acute spinal cord injury (< 1 month) Prophylaxis Regimen: Total Risk Factor Score Risk Level Prophylaxis Regimen 0-1 Low Early ambulation 2 Moderate Order ONE of the following: *Sequential Compression Device (SCD) *Heparin 5000 units SQ BID 3-4 Higher Order ONE of the following medications: *Heparin 5000 units SQ TID *Enoxaparin/Lovenox 40 mg SQ daily (WT < 150 kg, CrCl > 30 mL/min) *Enoxaparin/Lovenox 30 mg SQ daily (WT < 150 kg, CrCl > 10-29 mL/min) *Enoxaparin/Lovenox 30 mg SQ BID (WT < 150 kg, CrCl > 30 mL/min) AND/OR *Sequential Compression Device (SCD) 5 or more Highest Order ONE of the following medications: *Heparin 5000 units SQ TID (Preferred with Epidurals) *Enoxaparin/Lovenox 40 mg SQ daily (WT < 150 kg, CrCl > 30 mL/min) *Enoxaparin/Lovenox 30 mg SQ daily (WT < 150 kg, CrCl > 10-29 mL/min) *Enoxaparin/Lovenox 30 mg SQ BID (WT < 150 kg, CrCl > 30 mL/min) AND *Sequential Compression Device (SCD) Assessment and Plan - Assessment (1) Atrial fibrillation with RVR Code(s): I48.91 - Unspecified atrial fibrillation Status: Acute (2) Chest pain Code(s): R07.9 - Chest pain, unspecified Status: Acute (3) Alcohol abuse Code(s): F10.10 - Alcohol abuse, uncomplicated Status: Acute (4) Cocaine abuse Code(s): F14.10 - Cocaine abuse, uncomplicated Status: Acute (5) CASSIE (acute kidney injury) Code(s): N17.9 - Acute kidney failure, unspecified Status: Acute - Plan A/P: 1. Afib w/ RVR: h/o A-fib, non-compliant w/ medications except for ASA, HR 140 -150's on arrival, s/p Cardizem IV, currently on Cardizem gtt. Admit to [facility], telemetry, continue Cardizem, wean as tolerated, resume home medications, unfortunately anticipate ongoing issue w/ non-compliance due to financial reasons. 2. Chest Pain: likely secondary to above in combination w/ cocaine abuse, recent admit w/ negative Nuclear Stress 06/24/18, trop 0.08, trending down from 0.17 on 06/23/18, check serial cardiac enzymes. 3. CASSIE: Creatinine 1.38, previously 0.80 on 06/24/18, IVF for hydration, monitor I/O, repeat labs in am. 4. Cocaine Abuse: Pt counselled, Ativan prn. 5. Alcohol Abuse: CIWA, Seizure Precautions, MVT/Thiamine/Folate replacement. 6. DVT Prophylaxis: SCD/Teds 7. Social work for d/c planning as needed. 8. Case discussed w/ ER physician at length, labs/records/imaging reviewed by me.
[2018-07-03 04:54] LABS: Baso # (Auto) 0.1 th/mm3 (0.0-0.2); Baso % (Auto) 1.2 % (0.0-2.0); Eos # (Auto) 0.3 th/mm3 (0.0-0.4); Eos % (Auto) 4.1 % (0.0-4.0); Hematocrit 41.2 % (39.0-51.0); Hemoglobin 13.7 gm/dL (13.0-17.0); Lymph # (Auto) 1.9 th/mm3 (1.0-4.8); Lymph % (Auto) 25.3 % (9.0-44.0); Mean Corpuscular HGB Conc 33.3 % (32.0-36.0); Mean Corpuscular Hemoglobin 36.3 pg (27.0-34.0); Mean Corpuscular Volume 109.2 fL (80.0-100.0); Mean Platelet Volume 9.3 fL (7.0-11.0); Mono # (Auto) 1.4 th/mm3 (0.0-0.9); Mono % (Auto) 18.6 % (0.0-8.0); Neut # (Auto) 3.7 th/mm3 (1.8-7.7); Neut % (Auto) 50.8 % (16.0-70.0); Platelet Count 250 th/mm3 (150-450); Red Blood Count 3.78 mil/mm3 (4.50-5.90); Red Cell Distribution Width 14.6 % (11.6-17.2); White Blood Count 7.3 th/mm3 (4.0-11.0)
[2018-07-03 05:23] LABS: Albumin 2.4 g/dL (3.4-5.0); Anion Gap 9 meq/L (5-15); Aspartate Aminotransferase 67 U/L (15-37); Calcium 8.4 mg/dL (8.5-10.1); Chloride 109 meq/L (98-107); Glomerular Filtration Rate Greater Than 89 mL/min (>89); Glucose,Random 93 mg/dL (74-106); Potassium 3.8 meq/L (3.5-5.1); Sodium 146 meq/L (136-145)
[2018-07-03 05:28] LABS: Alanine Aminotransferase 55 U/L (12-78); Alkaline Phosphatase 261 U/L (45-117); Blood Urea Nitrogen 10 mg/dL (7-18); Total Protein 6.7 g/dL (6.4-8.2)
[2018-07-03] MEDS: Sod Chloride 0.9% Inj 1,000 ML IV.CONT SCH ×3 (07:18→21:47)
[2018-07-03] MEDS: Multivitamin/Minerals Therapeutic Tablet PO SCH (08:25)
[2018-07-03] MEDS: Folic Acid 1 MG Tablet PO SCH (08:25)
[2018-07-03] MEDS: Senna/Docusate Sodium 8.6/50 MG Tablet PO SCH ×2 (08:25→21:47)
[2018-07-03] MEDS: Tiotropium Bromide 18 MCG/ACT Inhaler INH SCH (11:27)
--- NOTE | 2018-07-03 12:52 | P.PNADD ---
Addendum to Inpatient Note Additional information: Patient seen/examined. Currently doing well. No chest pain, shortness of breath, fever or chills. Will wean off diltiazem drip and start patient on diltiazem p.o. If his heart rate remained controlled, will likely discharge him tomorrow. We will also start him on amlodipine 5 mg for hypertension.
[2018-07-03] MEDS: dilTIAZem 60 MG Tablet PO SCH ×3 (13:06→21:47)
[2018-07-03] MEDS: amLODIPine 5 MG Tablet PO SCH (13:06)
--- NOTE | 2018-07-03 14:05 | ECG ---
Date Performed: 07/02/2018 Time Performed: 21:24:38 PTAGE: 62 years EKG: ATRIAL FIBRILLATION, POSSIBLE ATRIAL FLUTTER WITH RAPID VENTRICULAR RESPONSE BORDERLINE LEF T AXIS DEVIATION ABNORMAL RHYTHM ECG PREVIOUS TRACING : 06/23/2018 16.23 DOCTOR: Valery Ruiz Interpretating Date/Time 07/03/2018 14:02:06
[2018-07-04] MEDS: Sod Chloride 0.9% Inj 1,000 ML IV.CONT SCH (05:14)
[2018-07-04] MEDS: dilTIAZem 60 MG Tablet PO SCH ×2 (09:03→13:48)
[2018-07-04] MEDS: amLODIPine 5 MG Tablet PO SCH (09:03)
[2018-07-04] MEDS: Multivitamin/Minerals Therapeutic Tablet PO SCH (09:03)
[2018-07-04] MEDS: Folic Acid 1 MG Tablet PO SCH (09:03)
[2018-07-04] MEDS: Senna/Docusate Sodium 8.6/50 MG Tablet PO SCH (09:04)
[2018-07-04] MEDS: Tiotropium Bromide 18 MCG/ACT Inhaler INH SCH (09:04)
[2018-07-04 09:17] VITALS: RESP 18; O2SAT 99
--- NOTE | 2018-07-04 09:50 | P.PN ---
Subjective Interval history: Follow up for Afib, HTN. Patient is doing well. No CP, fever, chills. Physical Exam Vital signs: Vital Signs 07/03/18 10:00 07/03/18 10:09 07/03/18 11:00 Temperature 98.9 F Pulse Rate 91 H 97 H Respiratory Rate 16 Blood Pressure 159/109 H Pulse Oximetry 100 99 07/03/18 12:00 07/03/18 13:00 07/03/18 14:00 Temperature Pulse Rate 91 H 92 H 87 Respiratory Rate Blood Pressure Pulse Oximetry 07/03/18 15:00 07/03/18 16:00 07/03/18 17:00 Temperature 98.7 F Pulse Rate 91 H 74 71 Respiratory Rate 16 Blood Pressure 158/119 H Pulse Oximetry 99 07/03/18 18:00 07/03/18 19:00 07/03/18 20:00 Temperature Pulse Rate 77 84 69 Respiratory Rate 16 Blood Pressure 125/86 Pulse Oximetry 99 07/03/18 21:00 07/03/18 22:00 07/03/18 23:00 Temperature Pulse Rate 63 46 L 56 L Respiratory Rate 16 Blood Pressure 107/74 Pulse Oximetry 98 07/04/18 00:00 07/04/18 01:00 07/04/18 02:00 Temperature Pulse Rate 48 L 56 L 62 Respiratory Rate Blood Pressure Pulse Oximetry 07/04/18 03:00 07/04/18 04:00 07/04/18 05:00 Temperature Pulse Rate 54 L 54 L 69 Respiratory Rate 16 Blood Pressure 119/83 Pulse Oximetry 96 07/04/18 06:00 07/04/18 07:00 07/04/18 08:00 Temperature 98.2 F Pulse Rate 69 65 Respiratory Rate 18 Blood Pressure 140/82 Pulse Oximetry 99 99 Intake & Output 07/03/18 07/04/18 07/04/18 18:59 06:59 18:59 Intake Total 2625 / 2625 580 / 580 Output Total 900 / 900 Balance 1725 / 1725 580 / 580 Weight 106 kg Intake: IV 1125 / 1125 NS Inj 1,000 ML @ 1000 mls/hr 1000 / 1000 IV.CONT ONCE ONE Rx#:[id number] Cardizem Inj 125 MG In NS Inj 125 / 125 100 ML @ 5 MG/HR 5 mls/hr IV. CONT TITRATE PRN Rx#:[id number] Oral 1500 / 1500 580 / 580 Output: Urine 900 / 900 Other: # Voids 3 Date of Last Bowel Movement 07/02/18 07/02/18 Narrative: GENERAL: Alert, oriented x 3, NAD. SKIN: Warm and dry. HEAD: Normocephalic. EYES: No scleral icterus. No injection or drainage. NECK: Supple, trachea midline. No JVD or lymphadenopathy. CARDIOVASCULAR: Regular rate and rhythm without murmurs, gallops, or rubs. RESPIRATORY: Breath sounds equal bilaterally. No accessory muscle use. GASTROINTESTINAL: Abdomen soft, non-tender, nondistended. MUSCULOSKELETAL: No cyanosis, or edema. BACK: Nontender without obvious deformity. No CVA tenderness. Results - Labs CBC & Chem 7: 07/03/18 04:00 07/03/18 04:00 Laboratory Results - last 24 hr 07/03/18 10:15 Troponin I 0.09 H - Imaging Chest X-Ray 07/02/18 21:29 CONCLUSION: No acute cardiopulmonary disease identified. Assessment and Plan - Assessment (1) Atrial fibrillation with RVR Code(s): I48.91 - Unspecified atrial fibrillation Status: Acute (2) Chest pain Code(s): R07.9 - Chest pain, unspecified Status: Acute (3) Alcohol abuse Code(s): F10.10 - Alcohol abuse, uncomplicated Status: Acute (4) Cocaine abuse Code(s): F14.10 - Cocaine abuse, uncomplicated Status: Acute (5) CASSIE (acute kidney injury) Code(s): N17.9 - Acute kidney failure, unspecified Status: Acute - Plan This is a 62-year-old Homeless male with a PMH of HTN, COPD, Hyperlipidemia, A. fib, Alcohol Abuse, Cocaine Abuse and Tobacco Abuse who presented to ER with complaints of chest pain starting earlier today. Patient has a history of cocaine induced chest pain. His troponins were around 0.08. Atrial fibrillation Chest pain - No further chest pain. Patient is advised to abstain from cocaine - Diltiazem drip discontinued - Will give patient Metoprolol 25mg BID upon discharge for rate control. - Aspirin 81mg Qday CASSIE - Creatinine improved 1.38 --> 0.80. COPD - continue Albuterol PRN and Spiriva. Full code. Ambulation. Discharge patient to home Condition on discharge: Improved Heart healthy diet tolerated Ad Jenn activity Rx written: Amlodipine 5 mg daily Metoprolol tartrate 25 mg p.o. twice daily Spiriva once daily Follow-up with primary care physician within 7-10 days. Patient is advised to follow-up with [facility].
[2018-07-04 12:35] VITALS: BP 131/93; TEMP 98
[2018-07-04 12:38] VITALS: PULSE 62
== END 2018-07-04 13:36 | disposition home or self-care (01) ==
LOC: NEPE 21:17 → NEDA 23:40 → HCIS 07-03 01:14
PROVIDERS: ADMIT Hospitalist; ATTEND Hospitalist